=== PATIENT | male | born 1995 | race Caucasian/White ===

== ENCOUNTER 2022-01-11 13:00 | Emergency (ER) | payer BC | END 2022-01-11 15:25 | disposition home or self-care (01) | LOC: ER1 13:00 | DX: S93.601A Unspecified sprain of right foot, initial encounter (principal); Z87.891 Personal history of nicotine dependence; W10.1XXA Fall (on)(from) sidewalk curb, initial encounter; Y92.480 Sidewalk as the place of occurrence of the external cause | CPT/HCPCS: 73610; 73630; 99283 ==